=== PATIENT | female | born 1960 | race Caucasian/White ===

== ENCOUNTER 2017-11-13 22:43 | Inpatient (IN) | END 2017-11-17 13:19 | disposition home or self-care (01) | DRG 683 ==

== ENCOUNTER 2018-02-19 22:24 | Inpatient (IN) | END 2018-02-23 14:59 | disposition home health service (06) | DRG 871 ==

== ENCOUNTER 2018-02-27 10:14 | Inpatient (IN) | END 2018-03-05 19:00 | disposition home or self-care (01) | DRG 70 ==